=== PATIENT | female | born 1955 | race Caucasian/White ===

== ENCOUNTER 2018-01-25 10:51 | Emergency (ER) | payer OTHER ==
[~2018-01-25] VITALS: Ht 157.5 cm; Wt 116.3 kg
[~2018-01-25 10:51] MED LIST: ADVIL200 MG PO; COUMADIN4 MG PO; COUMADIN7.5 MG PO; LOVENOX120 MG/0.8 SC; TRAMADOL HCL50 MG PO; TUMS500 MG PO
[2018-01-25 11:15] LABS: APPEARANCE CLEAR ((CLEAR)); BILIRUBIN NEGATIVE; BLOOD NEGATIVE; COLOR COLORLESS ((YELLOW)); GLUCOSE (STRIP) NEGATIVE; KETONES NEGATIVE; LEUKOCYTES NEGATIVE; NITRITE NEGATIVE; PROTEIN (STRIP) NEGATIVE; SPECIFIC GRAVITY 1.002 (1.000-1.030); UCUL ADDED? NO; UROBILINOGEN 0.2 MG/DL (0.2-1.0)
[2018-01-25 11:34] LABS: HEMOGLOBIN 15.2 G/DL (11.9-15.5); MCH 28.1 PG (29.0-34.0); PLATELET COUNT 220 K/uL (156-360); RBC DIS.WIDTH-CV 14.6 % (11.8-14.6); RBC DIS.WIDTH-SD 45.8 % (39-53); RED BLOOD COUNT 5.41 M/uL (3.80-5.20); WHITE BLOOD COUNT 11.1 K/uL (4.1-10.2)
[2018-01-25 11:42] LABS: CHLORIDE 106 mEq/L (99-109); INTER. NORMALIZED RATIO 2.9; POTASSIUM 4.1 mEq/L (3.7-5.4); SODIUM 140 mEq/L (136-147)
[2018-01-25 11:45] LABS: GLUCOSE 124 mg/dL (70-99); TOTAL PROTEIN 7.8 g/dL (6.4-8.3)
[2018-01-25 11:47] LABS: TOTAL BILIRUBIN 0.8 mg/dL (0.0-1.0)
[2018-01-25 11:48] LABS: ALKALINE PHOSPHATASE 94 IU/L (3-129); CREATININE 0.7 mg/dL (0.6-1.3); GFR ESTIMATE (CALCULATED) > 59 mL/min/
[2018-01-25 11:50] LABS: AST (GOT) 20 IU/L (2-34); UREA NITROGEN (BUN) 11 mg/dL (9-23)
[2018-01-25 11:51] LABS: ALT (GPT) 29 IU/L (3-49)
[2018-01-25 13:40] LABS: LIPASE 32 U/L (1.0-51.0)
[2018-01-25 14:23] LABS: HEMATOCRIT 43.3 % (36.0-46.0); HEMOGLOBIN 14.4 G/DL (11.9-15.5); MCV 84.9 FL (83-99)
[2018-01-25] MEDS ORDERED: FLAGYL500 MG PO (14:33)
[2018-01-25] MEDS ORDERED: CIPRO500 MG PO (14:33)
[2018-01-25 15:03] VITALS: BP 158/78
== END 2018-01-25 15:04 | disposition home or self-care (01) ==
LOC: EME 10:51
PROVIDERS: Physician Assistant
DX: K57.93 Diverticulitis of intestine, part unspecified, without perforation or abscess with bleeding (principal); Z90.49 Acquired absence of other specified parts of digestive tract; Z86.711 Personal history of pulmonary embolism; Z79.01 Long term (current) use of anticoagulants; Z87.891 Personal history of nicotine dependence; Z91.041 Radiographic dye allergy status
CPT/HCPCS: 74176; 80053; 81003; 83690; 85014; 85018; 85027; 85610; 99281; 99285; J2405; J7030